=== PATIENT | female | born 1950 | race Caucasian/White ===

== ENCOUNTER → 2018-03-03 09:11 | Outpatient (CLI) | payer OTHER, SELFPAY ==
[2018-03-03 11:03] LABS: AST(SGOT) 18 U/L (15-37); Alanine Aminotransfer ALT/SGPT 32 U/L (13-56); Albumin, Serum 3.4 g/dL (3.2-5.0); Alkaline Phosphatase 71 U/L (45-117); Anion Gap 8 (5-15); BUN 16 mg/dL (7-18); BUN/Creat Ratio 18.9 RATIO (10-20); Calcium,Total 8.6 mg/dL (8.5-10.1); Chloride 110 mmol/L (98-107); Cholesterol 217 mg/dL (200); Creatinine, Serum 0.85 mg/dL (0.55-1.02); EST Glomerular Filtration Rate 71 mL/min (>60); Est Glom Filt Rate - Afr Amer 86 mL/min (>60); Globulin 3.5 g/dL (2.2-4.2); Glucose 88 mg/dL (74-106); High Density Lipoprotein 52 mg/dL; Potassium 3.9 mmol/L (3.5-5.1); Protein, Total 6.9 g/dL (6.4-8.2); Sodium Level 142 mmol/L (136-145); Triglycerides 91 mg/dL; Very Low Density Lipoprotein 18 mg/dL (5-40)
[2018-03-03 11:28] LABS: Vitamin D,25 Hydroxy 50.2 ng/mL (29.95-100.01)
== END ==
PROVIDERS: Family Provider Family Medicine; PCP Family Medicine; Visit Provider Family Medicine
DX: I10 Essential (primary) hypertension (principal); Z13.220 Encounter for screening for lipoid disorders; M81.0 Age-related osteoporosis without current pathological fracture
CPT/HCPCS: 36415; 80053; 80061; 82306

== ENCOUNTER → 2018-08-01 09:43 | Outpatient (CLI) | payer OTHER, SELFPAY ==
[2018-08-01 12:03] LABS: Absolute Lymphocyte Count 1.91 X10^3/ul (0.83-4.51); Absolute Neutrophil Count 3.9 X10^3/uL (2.0-7.7); Basophil# 0.05 X10^3/uL; Basophil% 0.7 % (0-1); Eosinophil# 0.37 X10^3/uL; Eosinophils% 5.3 % (0-5); Hematocrit 37.4 % (37-47); Hemoglobin 12.7 g/dl (12.0-15.0); Lymphocyte # 1.91 X10^3/ul (4.0); Lymphocyte % 27.3 % (19-41); Mean Corpuscular Hgb 29.9 pg (27.0-32.0); Mean Platelet Vol. 11.4 fl (6.2-12.0); Monocyte# 0.74 X10^3/uL; Monocyte% 10.6 % (0-10); Neutrophil # 3.92 X10^3/uL (2.7-7.7); Platelet Count 269 K/mm3 (150-450); RBC Distribution Width CV 12.6 % (11.6-14.6); RBC Distribution Width SD 39.8 fl (35.1-43.9); Red Blood Count 4.25 M/mm3 (4.2-5.4)
[2018-08-01 12:04] LABS: POSITIVE COUNT NO; POSITIVE DIFFERENTIAL NO; POSITIVE MORPHOLOGY NO
[2018-08-01 12:10] LABS: Anion Gap 10 (5-15); BUN 15 mg/dL (7-18); BUN/Creat Ratio 19.2 RATIO (10-20); Calcium,Total 8.9 mg/dL (8.5-10.1); Chloride 101 mmol/L (98-107); Cholesterol 270 mg/dL (200); Creatinine, Serum 0.78 mg/dL (0.55-1.02); EST Glomerular Filtration Rate 78 mL/min (>60); Est Glom Filt Rate - Afr Amer 95 mL/min (>60); Glucose 98 mg/dL (74-106); High Density Lipoprotein 51 mg/dL; Magnesium 2.4 mg/dL (1.6-2.6); Potassium 3.6 mmol/L (3.5-5.1); Sodium Level 136 mmol/L (136-145); Triglycerides 85 mg/dL; Very Low Density Lipoprotein 17 mg/dL (5-40)
[2018-08-01 12:20] LABS: Vitamin D,25 Hydroxy 60.1 ng/mL (29.95-100.01)
== END ==
PROVIDERS: Family Provider Family Medicine; PCP Family Medicine; Visit Provider Family Medicine
DX: I10 Essential (primary) hypertension (principal); M25.50 Pain in unspecified joint; Z13.21 Encounter for screening for nutritional disorder; Z13.220 Encounter for screening for lipoid disorders
CPT/HCPCS: 36415; 80048; 80061; 82306; 83735; 85025

== ENCOUNTER → 2018-12-01 09:51 | Outpatient (CLI) | payer OTHER, SELFPAY ==
[2018-12-01 12:45] LABS: ALB/GLOB Ratio 1.1 RATIO (0.9-2.4); AST(SGOT) 21 U/L (15-37); Alanine Aminotransfer ALT/SGPT 36 U/L (13-56); Albumin, Serum 3.7 g/dL (3.2-5.0); Alkaline Phosphatase 78 U/L (45-117); Anion Gap 10 (5-15); BUN 17 mg/dL (7-18); BUN/Creat Ratio 21.4 RATIO (10-20); Calcium,Total 8.5 mg/dL (8.5-10.1); Chloride 107 mmol/L (98-107); Cholesterol 262 mg/dL (200); Creatinine, Serum 0.79 mg/dL (0.55-1.02); EST Glomerular Filtration Rate 77 mL/min (>60); Est Glom Filt Rate - Afr Amer 93 mL/min (>60); Globulin 3.3 g/dL (2.2-4.2); Glucose 91 mg/dL (74-106); High Density Lipoprotein 62 mg/dL; Potassium 4.3 mmol/L (3.5-5.1); Sodium Level 139 mmol/L (136-145); Triglycerides 84 mg/dL; Very Low Density Lipoprotein 17 mg/dL (5-40)
[2018-12-01 16:14] LABS: Microalbumin,Random Urine 5.1 mg/L (NO RANGE EST.); Microalbumin:Creatinine Ratio 5.1 mg/g CRE (<30 mg/g CRE)
== END ==
PROVIDERS: Family Provider Family Medicine; PCP Family Medicine; Visit Provider Family Medicine
DX: I10 Essential (primary) hypertension (principal); E78.5 Hyperlipidemia, unspecified
CPT/HCPCS: 36415; 80053; 80061; 82043; 82570

== ENCOUNTER → 2019-01-30 | Outpatient (CLI) | payer OTHER, SELFPAY ==
[2019-01-30 12:46] LABS: Cholesterol 250 mg/dL (200); High Density Lipoprotein 52 mg/dL; Triglycerides 147 mg/dL; Very Low Density Lipoprotein 29 mg/dL (5-40)
== END | disposition home or self-care (01) ==
LOC: MFPLAB 10:04
PROVIDERS: Family Provider Family Medicine; PCP Family Medicine; Referring Provider Family Medicine; Visit Provider Family Medicine
DX: E78.5 Hyperlipidemia, unspecified (principal)
CPT/HCPCS: 36415; 80061

== ENCOUNTER 2019-05-03 11:30 | Outpatient (RCR) | payer OTHER, SELFPAY ==
--- NOTE | 2019-04-11 17:22 | HP.PTEVAL ---
Patient's Visit Information MARII GOODRICH is a 68 year old F referred to Physical Therapy by Reno Mendoza with a diagnosis of B Knee DJD. Date of Evaluation: 04/11/19 Physical Therapist: CURTIS Mares - Visit Plan Frequency: 2-3x /Week Duration: 4-6 Weeks Plan: 2-3X/ week for 4 weeks-6 weeks for gait training, knee AROM, hip and knee strength, stairs, curb steps with HEP and modalities as needed. - Subjective Findings: Pt is going to get a knee replacement at the end of August. She just got another cortizone shot in her knees and the R knee is the worst. They are both bone on bone. Dr said she could do a Bilateral but she is scared to do that. She teaches at College. Her Dr is Dr Mendoza. She lives in [address] home and she has stairs with rails to the basement. She has 2 steps into the house with a railing. When the cortizone wears off her pain is 5/10. INcrease pain with walking long distances on the R. She can not walk rereationally and she is now gaining weight. - Pain R knee pain Pain Intensity (Out of 10): 2 Pain Intensity Range: 3 Comment: going up and down steps and with cortizone L knee pain Pain Intensity (Out of 10): 1 - Objective Gait: Walks with decrease stance time on the L... slightly. Overall normal gait pattern. R knee flexion AROM: 125 degrees and 0 degrees extension. L knee flexion AROM: 116 degrees and 0 degrees extension. LE MMT: R hip abd 4-/5, hip flex 4-/5, knee ext 4/5, knee flex 4-/5. L hip abd 4/5, hip flex 4/5, knee ext 4-/5, knee flex 4/5. Pt is able to heel and toe walk without issues. Stairs: Pt is able to ascend the stairs recip with 2 hand rails and it is hard for her to push through that R leg to ascend the stairs and she hops off the R knee quickly to avoid bending it and avoid the pain. - Goals Goal 1:: I HEP Goal Time Frame: 4-6 Weeks Goal 2:: Be able to go up and down stairs with a smooth recip pattern with 1 hand rail if needed. Goal Time Frame: 4-6 Weeks Goal 3:: Increase R knee AROM -1 degrees to 125 degrees knee flexion Goal Time Frame: 4-6 Weeks Goal 4:: Walk with a normal gait pattern Goal Time Frame: 4-6 Weeks - Rehabilitation Potential Rehabilitation Potential: Good - Anticipated Interventions Patient/Client Instruction: Educate patient on: Condition, Plan of Care For the Purpose of:: To decrease pain, To decrease swelling/inflammation, To increase ROM, To improve nutrient delivery to tissue, To improve muscle performance and motor function, To improve ability to perform ADL's, To increase tolerance to activity/condition/position, To improve performance and independence with ADL's, To improve gait and locomotor functions, To improve health of tissue, To decrease soft tissue restriction, To increase flexibility/ROM Therapeutic Exercise to Include: Strength training, Flexibilty training, Gait and locomotor training, Passive ROM, Active ROM For the Purpose of:: To decrease pain, To decrease swelling/inflammation, To improve nutrient delivery to tissue, To increase oxygenation perfusion, To improve muscle performance and motor function, To improve ability to perform ADL's, To improve performance and independence with ADL's, To decrease level of supervision to perform tasks, To improve ability of physical actions for home/community/work/leisure, To improve gait and locomotor functions Functional Training to Include: Gait training For the Purpose of:: To improve gait and locomotor functions IF ES: Yes Cryotherapy (ice pack, ice massage): Yes Ultrasound (thermal/non thermal): Yes For the Purpose of:: To decrease pain, To decrease swelling/inflammation, To increase ROM, To improve nutrient delivery to tissue Thank you for the opportunity to evaluate your patient. For Medicare and Medicare HMO plans, please review the plan of care and approve it. It will need to be FAXED BACK to us at [phone] for Medicare purposes. For Medicare only, by signing this I certify the plan of care. Please let me know if there are questions or concerns regarding this plan of care. Physician Signature: Date:
--- NOTE | 2019-05-04 10:59 | HP.PTDCSUM ---
HP - PT D/C Summary It has been my pleasure to treat MARII GOODRICH under orders from Reno Mendoza, for the diagnosis of B Knee DJD for a total of 9 visit(s). Discharge Date: 05/04/19 Please see the following information for a summary of their discharge status. - Subjective Subjective: Started on indep. use of the gym machines today w/ pt being in chage of her machine set ups. Still gets flared up on bilat. knees whenever overdoing any type of activity. - Pain R knee pain Pain Intensity (Out of 10): 2 L knee pain Pain Intensity (Out of 10): 2 - Objective Objective/Function: pt did well today. This is pt last session. Still has swelling and stiffness depending on the activities she does but wants to do the workout on her own at gym. - Goals Goal 1:: I HEP Goal 2:: Be able to go up and down stairs with a smooth recip pattern with 1 hand rail if needed. Goal 3:: Increase R knee AROM -1 degrees to 125 degrees knee flexion Goal 4:: Walk with a normal gait pattern - Plan Plan: Cont w/ POC.pt wants to be d/c from PT. - D/C Information Discharge Comments: DC PT to [facility] If there are questions or concerns regarding this patient's physical therapy, please feel free to call me at [phone]. Thank you for the referral of this patient. Sincerely, Kathi Mcclendon, MPT
== END 2019-05-03 19:00 | disposition home or self-care (01) ==
LOC: PT 11:30
PROVIDERS: Family Provider Family Medicine; PCP Family Medicine; Referring Provider Orthopaedic Surgery; Visit Provider Orthopaedic Surgery
DX: M17.0 Bilateral primary osteoarthritis of knee (principal)
CPT/HCPCS: 97110; 97161

== ENCOUNTER → 2019-11-30 10:24 | Outpatient (CLI) | payer OTHER, SELFPAY ==
[2019-11-30 13:02] LABS: ALB/GLOB Ratio 0.9 RATIO (0.9-2.4); AST(SGOT) 18 U/L (15-37); Alanine Aminotransfer ALT/SGPT 37 U/L (13-56); Albumin, Serum 3.5 g/dL (3.2-5.0); Alkaline Phosphatase 74 U/L (45-117); Anion Gap 5 (5-15); BUN 17 mg/dL (7-18); BUN/Creat Ratio 20.3 RATIO (10-20); Calcium,Total 9.2 mg/dL (8.5-10.1); Chloride 107 mmol/L (98-107); Cholesterol 241 mg/dL (200); Creatinine, Serum 0.84 mg/dL (0.55-1.02); EST Glomerular Filtration Rate 72 mL/min (>60); Est Glom Filt Rate - Afr Amer 87 mL/min (>60); Globulin 3.8 g/dL (2.2-4.2); Glucose 104 mg/dL (74-106); High Density Lipoprotein 51 mg/dL; Potassium 3.9 mmol/L (3.5-5.1); Protein, Total 7.3 g/dL (6.4-8.2); Sodium Level 137 mmol/L (136-145); Triglycerides 122 mg/dL; Very Low Density Lipoprotein 24 mg/dL (5-40)
== END ==
PROVIDERS: PCP Family Medicine; Referring Provider Family Medicine; Visit Provider Family Medicine
DX: E78.00 Pure hypercholesterolemia, unspecified (principal)
CPT/HCPCS: 36415; 80053; 80061

== ENCOUNTER → 2020-05-12 08:55 | Outpatient (CLI) | payer OTHER, SELFPAY ==
[2020-05-12 08:28] VITALS: BMI 24.9
--- NOTE | 2020-05-12 08:56 | RAD_ITS ---
STUDY: X-RAY - RIGHT KNEE REASON FOR EXAM: Female, 69 years old. PAIN AND STIFFNESS WITH SWELLING BOTH KNEES FOR A LONG TIME. NO KNOWN RECENT INJURY. TECHNIQUE: 4 view(s) of the knee. COMPARISON: None. FINDINGS: Normal visualized distal femur. Normal visualized proximal tibia and fibula. Normal proximal tibiofibular articulation. There is severe degenerative arthrosis of the medial femorotibial compartment with severe joint space narrowing. There is mild degenerative arthrosis of the lateral femorotibial compartment. There is moderate degenerative arthrosis of the patellofemoral articulation. No demonstrated effusion, there are degenerative spurs. The soft tissue structures are unremarkable. RAD/Knee 4 or More Views IMPRESSION: Degenerative arthrosis. Electronically Signed: Cipriano Rosales MD at 9:27 EDT , Service support ,
--- NOTE | 2020-05-12 08:57 | RAD_ITS ---
STUDY: X-RAY - LEFT KNEE REASON FOR EXAM: Female, 69 years old. PAIN AND STIFFNESS WITH SWELLING BOTH KNEES FOR A LONG TIME. NO KNOWN RECENT INJURY. TECHNIQUE: 4 view(s) of the knee. COMPARISON: None. FINDINGS: Normal visualized distal femur. Normal visualized proximal tibia and fibula. Normal proximal tibiofibular articulation. There is severe degenerative arthrosis of the medial femorotibial compartment with severe joint space narrowing. There is mild degenerative arthrosis of the lateral femorotibial compartment. There is moderate degenerative arthrosis of the patellofemoral articulation. No demonstrated effusion there are degenerative spurs. The soft tissue structures are unremarkable. RAD/Knee 4 or More Views IMPRESSION: Tricompartmental arthrosis with degenerative spurs. Electronically Signed: Cipriano Rosales MD at 9:26 EDT , Service support ,
== END ==
LOC: HPRAD 08:56
PROVIDERS: PCP Family Medicine; Referring Provider Orthopaedic Surgery; Visit Provider Orthopaedic Surgery
DX: M25.561 Pain in right knee (principal); M25.562 Pain in left knee
CPT/HCPCS: 73564

== ENCOUNTER → 2020-06-02 08:20 | Outpatient (CLI) | payer OTHER, SELFPAY ==
[2020-05-12 08:28] VITALS: BMI 24.9
[2020-05-26 10:38] VITALS: BMI 24.9
--- NOTE | 2020-06-02 08:22 | CT_ITS ---
STUDY: CT SCAN LOWER EXTREMITY RIGHT REASON FOR EXAM: Female, 69 years old. RT KNEE EULALIA PLASTY. KNEE PAIN RADIATION DOSAGE (If Supplied By Facility): CTDIvol = ( 18.76 ) mGy, DLP = ( 1134.32 ) mGycm. Individualized dose optimization techniques were used for this CT.? TECHNIQUE: Multiple axial tomographic images of the right hip joint in the right knee joints were obtained. Sagittal and coronal reconstruction was obtained as well. COMPARISON: Comparison is made with prior radiograph of the right knee dated 05/12/2020. FINDINGS: The right hip joint is unremarkable. No significant joint space narrowing is seen. The bones have a normal appearance. There is a marked degree of joint space narrowing and degenerative spurring along the medial compartment of the knee joint. Minimal spurring is also seen along the lateral compartment of the knee joint. There is a moderate degree of joint space narrowing and osteoarthritis involving the patellofemoral joint with a prominent degenerative spur along the superior aspect of the femoral condyle. CT/Extremity Lower without Contra IMPRESSION: Moderate degree of the joint space narrowing and degeneration of the medial compartment of knee joint as well as a moderate degree of the osseous right as involving the patellofemoral joint with degenerative spurring. Electronically Signed: Bogdan Schwarz, at 9:02 EDT , Service support ,
== END ==
PROVIDERS: PCP Family Medicine; Referring Provider Orthopaedic Surgery; Visit Provider Orthopaedic Surgery
DX: M17.0 Bilateral primary osteoarthritis of knee (principal)
CPT/HCPCS: 73700

== ENCOUNTER → 2020-06-10 09:14 | Outpatient (CLI) | payer OTHER, SELFPAY ==
[2020-05-26 10:38] VITALS: BMI 24.9
[2020-06-10 10:04] LABS: Absolute Lymphocyte Count 2.34 X10^3/uL (0.83-4.51); Absolute Neutrophil Count 5.2 X10^3/uL (2.0-7.7); Basophil# 0.06 X10^3/uL; Basophil% 0.7 % (0-1); Eosinophil# 0.37 X10^3/uL; Eosinophils% 4.3 % (0-5); Hematocrit 39.4 % (37-47); Hemoglobin 12.9 g/dL (12.0-15.0); Lymphocyte # 2.34 X10^3/ul (4.0); Lymphocyte % 27.1 % (19-41); Mean Corp Hgb Conc 32.7 g/dL (32-36); Mean Corpuscular Volume 91.6 fL (81-99); Monocyte# 0.66 X10^3/uL; Monocyte% 7.6 % (0-10); NRBC Flagged by Analyzer 0 % (0-5); Neutrophil # 5.16 X10^3/uL (2.7-7.7); Neutrophil % 59.8 % (47-70); Platelet Count 288 K/mm3 (150-450); RBC Distribution Width CV 12.9 % (11.6-14.6); RBC Distribution Width SD 43.2 fl (35.1-43.9); White Blood Count 8.6 K/mm3 (4.4-11.0)
[2020-06-10 10:47] LABS: AST(SGOT) 20 U/L (15-37); Alanine Aminotransfer ALT/SGPT 34 U/L (13-56); Albumin, Serum 3.6 g/dL (3.2-5.0); Alkaline Phosphatase 71 U/L (45-117); Anion Gap 5 (5-15); BUN 16 mg/dL (7-18); BUN/Creat Ratio 19.1 RATIO (10-20); Chloride 104 mmol/L (98-107); Cholesterol 144 mg/dL (200); Creatinine, Serum 0.84 mg/dL (0.55-1.02); EST Glomerular Filtration Rate 72 mL/min (>60); Est Glom Filt Rate - Afr Amer 87 mL/min (>60); Globulin 3.6 g/dL (2.2-4.2); Glucose 103 mg/dL (74-106); High Density Lipoprotein 56 mg/dL; Potassium 4.2 mmol/L (3.5-5.1); Protein, Total 7.2 g/dL (6.4-8.2); Sodium Level 137 mmol/L (136-145); Triglycerides 82 mg/dL; Very Low Density Lipoprotein 16 mg/dL (5-40)
== END ==
PROVIDERS: PCP Family Medicine; Referring Provider Family Medicine; Visit Provider Family Medicine
DX: Z01.818 Encounter for other preprocedural examination (principal); E78.00 Pure hypercholesterolemia, unspecified
CPT/HCPCS: 36415; 80053; 80061; 85025

== ENCOUNTER 2020-07-29 06:37 | Day surgery (SDC) | payer OTHER, SELFPAY ==
[2020-05-12 08:28] VITALS: BMI 24.9
--- NOTE | 2020-06-24 09:16 | EKG12_ITS ---
Test Reason : PRE OP Blood Pressure : / mmHG Vent. Rate : 114 BPM Atrial Rate : 114 BPM P-R Int : 156 ms QRS Dur : 092 ms QT Int : 340 ms P-R-T Axes : 070 085 047 degrees QTc Int : 468 ms Sinus tachycardia Low voltage QRS (Limb Leads) Confirmed by NALLELY SAMANO, RAMONA ([id number]), manager editorial HUBERT KINGSLEY ([id number]) on 06/26/2020 11:36:10 AM Referred By: Jose E Schmidt Confirmed By:RAMONA BROWNING MD
[2020-06-24 09:39] LABS: Prothrombin Time (Protime)PT. 12.8 SECONDS (11.7-14.9)
[2020-06-24 09:40] LABS: Partial Thromboplast Time 26.5 Seconds (24.1-36.2)
[2020-06-24 10:16] LABS: Magnesium 2.1 mg/dL (1.6-2.6)
[2020-07-11 07:54] VITALS: BMI 24.9
--- NOTE | 2020-07-22 09:52 | EKG12_ITS ---
Test Reason : PRE OP Blood Pressure : / mmHG Vent. Rate : 098 BPM Atrial Rate : 098 BPM P-R Int : 172 ms QRS Dur : 086 ms QT Int : 348 ms P-R-T Axes : 071 079 059 degrees QTc Int : 444 ms Normal sinus rhythm Normal ECG Confirmed by SARAH SAMANO, NICOLE ([id number]), loan expeditor HUBERT KINGSLEY ([id number]) on 07/23/2020 8:46:48 AM Referred By: Jose E Schmidt Confirmed By:NICOLE SMITH MD
[2020-07-29] VITALS (8 sets, daily range): BP systolic 103–147; BP diastolic 62–103; PULSE 74–101; RESP 16–20; TEMP 36.2–37.2; O2SAT 97–100; BMI 27.6
[2020-07-29] MEDS: Acetaminophen 500 MG Tablet 1000 MG PO ×2 (08:39→17:06)
[2020-07-29] MEDS: Gabapentin 600 MG Tablet PO (08:39)
[2020-07-29] MEDS: Scopolamine 1mg/72hr Patch 1 PATCH TRANSDERM. (08:40)
[2020-07-29] MEDS: Lactated Ringers 1,000 ML 999 ML IV (08:41)
[2020-07-29 08:56] LABS: Bedside Glucose 147 mg/dL (70-110)
[2020-07-29] MEDS: Vancomycin IV 1,000 MG/200 ML BAG 200 MG IV (08:57)
[2020-07-29] MEDS: Lactated Ringers 1,000 ML 100 ML IV (09:44)
--- NOTE | 2020-07-29 10:38 | PCM.HP.BLA ---
History and Physical Date of Admission: 07/29/20 Intake Intake Visit Reasons: right knee Chief Complaint: right knee Accompanied by: self Is patient in pain?: Yes Allergies povidone-iodine [From Betadine] Allergy (Severe, Verified 06/20/20 14:41) rash soap [From Betadine] Allergy (Severe, Verified 06/20/20 14:41) rash atropine Allergy (Verified 06/16/20 13:03) PT UNSURE OF REACTION cephalexin monohydrate [From Keflex] Allergy (Verified 06/16/20 13:03) Rash latex Allergy (Verified 06/16/20 13:03) Rash Penicillins Allergy (Verified 06/16/20 13:03) Swelling Sulfa (Sulfonamide Antibiotics) Allergy (Verified 06/16/20 13:03) Swelling nitrofurantoin macrocrystalline [From Macrodantin] Adverse Reaction (Verified 06/16/20 13:03) Unknown Medications Calcium Carbonate/Vitamin D3 [Calcium 600-Vit D3 400 Caplet] 1 ea PO BID 12/17/15 [History Confirmed 07/11/20] Cholecalciferol (VIT D3) [Vitamin D3] 1,000 unit PO BID 12/17/15 [History Confirmed 07/11/20] Famotidine [Pepcid] 10 mg PO DAILY 12/17/15 [History Confirmed 07/11/20] Lisinopril [Zestril] 10 mg PO DAILY 12/17/15 [History Confirmed 07/11/20] Multivitamin [Daily Multiple Vitamin] 1 ea PO DAILY 12/17/15 [History Confirmed 07/11/20] Propranolol HCl [Inderal (Beta David)] 10 mg PO BID 12/17/15 [History Confirmed 07/11/20] Ubidecarenone/Vitamin E [Co Q-10 50 mg Softgel] 1 ea PO DAILY 02/06/16 [History Confirmed 07/11/20] estradiol 1 g VAGINAL 2XW 05/12/20 [History Confirmed 07/11/20] rosuvastatin 5 mg tablet 5 mg PO DAILY 05/12/20 [History Confirmed 07/11/20] Lutein Extract/Zeaxanthin Ext [Lutein 15 mg Softgel] 1 ea PO DAILY 06/16/20 [History Confirmed 07/11/20] Meloxicam [Mobic] 7.5 mg PO PRN PRN 06/16/20 [History Confirmed 07/11/20] Sertraline HCl [Zoloft] 25 mg PO DAILY 06/16/20 [History Confirmed 07/11/20] PFSH Social History (Updated 07/11/20 @ 11:[address] Jose E Schmidt, ) Smoking Status: Never smoker HPI right knee: Details: Parts of this documentation were recorded by a scribe, this documentation accurately reflects the service provided and the decisions made by me, Dr. Jose E Schmidt DO 07/11/20 [id number]. MARII GOODRICH is a 70 year old F here today for right knee. PAtient is here today to sign surgery consent for right TKA CT guided. Patient states that she is ready to proceed with sugrery at this time. States that she is not has axious about the proceed at this time after doing additional research. Denies numbness, tingling or other associated symptoms. ROS Musc Reports joint pain, Reports joint swelling, Denies numbness, Reports stiffness, Denies tingling Skin/Breast Reports system reviewed and no additional complaints, except as docu Neuro No numbness, No tingling Ortho Exam Right Knee Skin/Wound: No erythema, No ecchymosis, No swelling Homans Sign: No Knee ROM: Yes ROM-Extension -20 to 0, No ROM-Flexion 0-140 Examination: Yes Med jt line tenderness Stability: NML: Anterior Drawer, NML: Posterior Drawer Supplemental Info 05/12/2020 x-ray right knee: [id number] medial compartment arthrosis,Moderate arthrosis throughout the remainder of the knee 05/12/2020 x-ray Left knee: [id number] medial compartment arthrosis,Moderate arthrosis throughout the remainder of the knee Assessment & Plan Problems 1. Primary osteoarthritis of right knee M17.11 Plan Patient is aware of the right TKA with the makoplasty. Risks, benefits and alternatives of surgery reviewed including but not limited to bleeding, infection, nerve, artery and/or tissue damage, fracture, VTE, mechanical feel of the knee, continued pain, stiffness and expected post-operative course. Patient educated that she can not have the IOVERA tx agian and it may still be effective for the surgery. DOS set for 07/29/2020. Follow up 2 weeks post op or sooner if pain, swelling, numbness or associated symptoms, or concerns develop. All questions answered. Patient in agreement of plan. Coding Level of Care Code Off vis,est,level 2 Diagnoses Primary osteoarthritis of right knee M17.11 I have re-examined the patient. There are no clinical changes since date of exam
[2020-07-29] MEDS: Lactated Ringers 1,000 ML 125 ML IV (11:30)
[2020-07-29] MEDS: Epinephrine (1 mg/ml) 1 MG/ML VIAL (11:55)
[2020-07-29] MEDS: Bupivacaine Mpf 0.5% 30 ML VIAL (11:55)
[2020-07-29] MEDS: Betamethasone/Betamethasone 30 MG/5 ML Vial (11:55)
--- NOTE | 2020-07-29 12:36 | DCINST_ITS ---
Discharge Diet: No Restrictions Weight Bearing Status: Weight bearing as tolerated Call your doctor if you observe: Shortness of breath, Chest pain Additional Instructions: Ice and elevate one week while not ambulating. Ambulation is encouraged. Weightbearing as tolerated. Use assistive devise for stability. Encourage FULL knee extension and flexion 1 time EVERY time you get up and down and MULTIPLE times per day. No showering 72 hours after surgery. Begin showering postop day #3. Remove the dressing prior to shower and gently wash with warm water and antibacterial soap then pat dry and place abdominal pad (or plain gauze) and ANÍBAL hose over top. This is to be done daily. Do not submerge for 3 weeks. If not showering daily after the initial 72 hours then you must clean incision and change dressing daily. Do not allow animals near the incision area. Keep clean. Follow anticoagulation recommendations as prescribed. Do not take any NSAIDs while on blood thinner. Do not take any additional narcotic pain medication other than what was prescribed on you surgery day without discussing with physician. Start physical therapy. If you are not currently scheduled for physical therapy or you are unsure of appointment time please call office [facility] to arrange. Call Dr. Schmidt with any concerns. Allergies/Adverse Reactions: Allergies povidone-iodine [From Betadine] Allergy (Severe, Verified 06/20/20 14:41) rash topical rash soap [From Betadine] Allergy (Severe, Verified 06/20/20 14:41) rash topical rash atropine Allergy (Verified 06/16/20 13:03) PT UNSURE OF REACTION cephalexin monohydrate [From Keflex] Allergy (Verified 06/16/20 13:03) Rash latex Allergy (Verified 06/16/20 13:03) Rash Penicillins Allergy (Verified 06/16/20 13:03) Swelling Sulfa (Sulfonamide Antibiotics) Allergy (Verified 06/16/20 13:03) Swelling nitrofurantoin macrocrystalline [From Macrodantin] Adverse Reaction (Verified 06/16/20 13:03) Unknown Medications to take at Discharge Calcium Carbonate/Vitamin D3 [Calcium 600-Vit D3 400 Caplet] 1 ea PO BID 12/17/15 Cholecalciferol (VIT D3) [Vitamin D3] 1,000 unit PO BID 12/17/15 Famotidine [Pepcid] 10 mg PO DAILY 12/17/15 Lisinopril [Zestril] 10 mg PO DAILY 12/17/15 Multivitamin [Daily Multiple Vitamin] 1 ea PO DAILY 12/17/15 Propranolol HCl [Inderal (Beta David)] 10 mg PO BID 12/17/15 Ubidecarenone/Vitamin E [Co Q-10 50 mg Softgel] 1 ea PO DAILY 02/06/16 estradiol 1 g VAGINAL 2XW 05/12/20 rosuvastatin 5 mg tablet 5 mg PO DAILY 05/12/20 Lutein Extract/Zeaxanthin Ext [Lutein 15 mg Softgel] 1 ea PO DAILY 06/16/20 Sertraline HCl [Zoloft] 25 mg PO DAILY 06/16/20 Acetaminophen [Tylenol Extra Strength] 1,000 mg PO Q6H PRN #100 tab 07/29/20 Apixaban [Eliquis] 2.5 mg PO BID #30 tab 07/29/20 Clindamycin HCl 300 mg PO Q8 #2 cap 07/29/20 Loratadine [Claritin] 10 mg PO DAILY PRN PRN 07/29/20 Ondansetron HCl [Zofran] 4 mg PO Q6H PRN PRN 5 Days #20 tab 07/29/20 Oxycodone [Oxyir] 5 mg PO Q4H PRN PRN #60 tab 07/29/20 Spironolactone 25 mg PO DAILY PRN PRN 07/29/20 The following prescriptions were given: Clindamycin HCl 300 mg PO Q8 #2 cap Transmission Status: Sent to [facility]/pharmacy #[id number] Apixaban [Eliquis] 2.5 mg PO BID #30 tab Transmission Status: Received by [facility] Oxycodone [Oxyir] 5 mg PO Q4H PRN PRN #60 tab PRN Reason: Pain Score 6-10/10 Transmission Status: Received by [facility] Acetaminophen [Tylenol Extra Strength] 1,000 mg PO Q6H PRN #100 tab Transmission Status: Received by [facility] Ondansetron HCl [Zofran] 4 mg PO Q6H PRN PRN 5 Days #20 tab PRN Reason: Nausea Transmission Status: Received by [facility] Orders to be completed after discharge: Type & Screen - PAT ONLY Facility: [facility], Location: [facility] Primary Care Physician: Darryl Ríos MD [Primary Care Provider] - Test Results: Test results from this visit will be discussed in further detail at your follow- up appointment, if applicable. Please Follow Up With: Jose E Schmidt DO - 2 weeks
--- NOTE | 2020-07-29 12:38 | OP.PCM_ITS ---
Report of Operation Date of Procedure: 07/29/20 Description of Surgical Findings:: Preoperative diagnosis: Right knee DJD Postoperative diagnosis: Same Procedure: Right total knee arthroplasty CT guided Robotic Assisted Implant: Randi triathlon press fit femoral component size2, press-fit tibial baseplate size 3, press fit asymmetric patella size 32, polyethylene X3 size 9 CS Anesthesia: Spinal with adductor canal block Tourniquet time: 12 minutes at 300 mmHg Complications: None Condition: Stable to PACU Estimated blood loss: 125 cc Indication for procedure: This is a 70-year-old female with long standing degenerative joint disease of the knee who has failed conservative treatment and wished to proceed with elective total knee arthroplasty. Risk benefits and alternatives were reviewed including; risk of bleeding, infection, nerve artery and tissue damage, continued pain, postoperative stiffness, venous thromboembolism, need for postoperative rehabilitation, mechanical feel to the knee, and expected postoperative course. The operative CT and templating was performed with component sizing Procedure: The patient was met in the preoperative holding area. The operative extremity was identified by both patient and physician and was marked. Patient was met by anesthesia. An adductor canal block was placed by anesthesia postoperatively the patient was brought back to the operating room on a wheeled cart and transferred to the operating table in the supine position. Anesthesia was started. A well-padded tourniquet was placed on the operative extremity. The patient was prepped and draped in the usual sterile fashion. A timeout was called to ensure the proper patient procedure and extremity were being contemplated. An Esmarch was used to exsanguinate the extremity. The tourniquet was inflated. A 10 blade scalpel was used to make a midline incision down through the skin and subcutaneous tissue. Skin retractors placed. Bovie was used to perform meticulous hemostasis. full-thickness flaps were elevated medial and lateral along the joint capsule. A deep blade scalpel was used to perform a medial parapatellar arthrotomy. The knee was brought to full extension. A Bovie was used to release the soft tissues off the most proximal aspect of the medial tibial plateau a three-quarter inch curved osteotome was also used for this process. The infrapatellar fat pad was excised. The fat pad was excised partially anterior lateral portion the anterior medial was elevated from the femur. At this point our intra-articular femoral array was placed of a 45 degree angle proximal and posterior to the medial epicondyle. Our tibial array was placed greater than 1 hands breath below the incision at a 20 degree angle stab incisions were used for this case were attached and checked with the robotic software. Tourniquet was let down. At this point registration ayon were taken throughout the knee as well as checkpoints placed in the femur and tibia once the knee was registered then tensioned the medial and lateral ligaments in extension and 90 degrees of flexion. We then used these numbers to adjust our components within parameters to balance the knee in both flexion and extension once this was done on our monitor we then proceeded with using the robotic arm to make our tibial plateau cut and anterior posterior and chamfer cuts on the femur we then trialed and achieved the desired plan with a well- balanced knee. Lug holes were drilled in the femur the tibia preparation was completed with a fin punch and the patella was prepared by first using a caliper to ensure sufficient bone stock and a patellar reamer to remove the desired amount of bone locals were drilled for an asymmetric poly-. We then brought the knee through range of motion with excellent patellar tracking. We thoroughly irrigated the knee with a trial components were removed a posterior capsular injection with her standard cocktail was performed the aqua Mantis was also used to aid in hemostasis. Betadine rinse was allowed to sit and washed out components were press-fit into place. Aricept rinse was then used followed by several more rate liters of irrigation after it was allowed to sit. Joint capsule was closed with #1 Ethibond [id number] followed by Vicryl in the subcutaneous tissues staple in the skin arrays and checkpoints were removed prior to closure all counts were correct stab incisions were closed with a stable standard dressing in the form of Mepilex for the main incision Xeroform 4 x 4 and Tegaderm over pin site holes. Thigh-high ANÍBAL hose applied over top of dressing. Patient tolerated the procedure well and was directed to PACU in stable condition no intraoperative complications
--- NOTE | 2020-07-29 13:12 | RAD_ITS ---
STUDY: X-RAY - RIGHT KNEE REASON FOR EXAM: Female, 70 years old. POST OP PORTABLE RIGHT KNEE. TECHNIQUE: 2 view(s) of the knee. COMPARISON: 05/12/2020 FINDINGS: Normal visualized distal femur. Normal visualized proximal tibia and fibula. Normal proximal tibiofibular articulation. Interval recent total knee arthroplasty with skin tony and subcutaneous emphysema.. The soft tissue structures are unremarkable. RAD/Knee 1 or 2 Views IMPRESSION: Interval recent total knee arthroplasty. Electronically Signed: Sloan Ross MD at 15:55 EDT Tel , Service support ,
[2020-07-29 13:30] LABS: Bedside Glucose 120 mg/dL (70-110)
== END 2020-07-29 17:27 | disposition home or self-care (01) ==
LOC: SDC 06:38 → AC 06:38
PROVIDERS: Anesthesiology; PCP Family Medicine; Referring Provider Orthopaedic Surgery; Visit Provider Orthopaedic Surgery
PROC: 0SRC0JZ Replacement of Right Knee Joint with Synthetic Substitute, Open Approach (ICD-10-PCS; CPT 27447; principal; 2020-07-29 09:30)
DX: M17.11 Unilateral primary osteoarthritis, right knee (principal); Z11.59 Encounter for screening for other viral diseases; I10 Essential (primary) hypertension; K21.9 Gastro-esophageal reflux disease without esophagitis; E78.00 Pure hypercholesterolemia, unspecified; F32.9 Major depressive disorder, single episode, unspecified; G25.81 Restless legs syndrome; Z78.0 Asymptomatic menopausal state; Z85.3 Personal history of malignant neoplasm of breast; Z85.828 Personal history of other malignant neoplasm of skin; Z79.01 Long term (current) use of anticoagulants; Z79.899 Other long term (current) drug therapy
CPT/HCPCS: 01402; 27447; S2900; 73560; 82962; 83735; 85610; 85730; 86850; 86900; 86901; 87081; 87635; 93005; 97162; 97166; C1776; C9803; J7120; J0702; J2405; U0003

== ENCOUNTER → 2022-02-17 | Outpatient (CLI) | payer MEDICARE, OTHER, SELFPAY ==
[2022-02-17 10:32] LABS: Microalbumin,Random Urine 5.1 mg/L (NO RANGE EST.); Microalbumin:Creatinine Ratio 6.2 mg/g CRE (<30 mg/g CRE)
[2022-02-17 10:36] LABS: Vitamin D,25 Hydroxy 110.3 ng/mL
[2022-02-17 10:39] LABS: Cholesterol 150 mg/dL (200); High Density Lipoprotein 51 mg/dL; Thyroid Stim Hormone (TSH) 0.99 uIU/mL (0.358-3.74); Triglycerides 85 mg/dL; Very Low Density Lipoprotein 17 mg/dL (5-40)
== END | disposition home or self-care (01) ==
LOC: MFPLAB 08:47
PROVIDERS: PCP Family Medicine; Referring Provider Family Medicine; Visit Provider Family Medicine
DX: M85.80 Other specified disorders of bone density and structure, unspecified site (principal); I10 Essential (primary) hypertension; F41.1 Generalized anxiety disorder
CPT/HCPCS: 36415; 80061; 82043; 82306; 82570; 84443

== ENCOUNTER → 2022-02-22 | Outpatient (CLI) | payer MEDICARE, OTHER, SELFPAY ==
[2022-02-22 16:19] LABS: AST(SGOT) 27 U/L (15-37); Alanine Aminotransfer ALT/SGPT 40 U/L (13-56); Albumin, Serum 3.8 g/dL (3.2-5.0); Alkaline Phosphatase 78 U/L (45-117); Anion Gap 4 (5-15); BUN 18 mg/dL (7-18); Calcium,Total 9.3 mg/dL (8.5-10.1); Chloride 104 mmol/L (98-107); Creatinine, Serum 0.95 mg/dL (0.55-1.02); EST Glomerular Filtration Rate 62 mL/min (>60); Est Glom Filt Rate - Afr Amer 75 mL/min (>60); Globulin 3.7 g/dL (2.2-4.2); Glucose 111 mg/dL (74-106); Potassium 4.6 mmol/L (3.5-5.1); Protein, Total 7.5 g/dL (6.4-8.2); Sodium Level 135 mmol/L (136-145)
== END | disposition home or self-care (01) ==
LOC: MFPLAB 12:14
PROVIDERS: PCP Family Medicine; Visit Provider Family Medicine
DX: I10 Essential (primary) hypertension (principal); T45.2X1A Poisoning by vitamins, accidental (unintentional), initial encounter
CPT/HCPCS: 36415; 80053

== ENCOUNTER → 2022-04-28 | Outpatient (CLI) | payer MEDICARE, OTHER, SELFPAY ==
--- NOTE | 2022-04-28 09:47 | BD_ITS ---
STUDY: DUAL ENERGY X-RAY ABSORPTIOMETRY / DXA REASON FOR EXAM: Female, 71 years old. 733.90OsteopeniaBONE DENSITY REASON FOR EXAM TECHNIQUE: Bone Mineral Density (BMD) measurements of lumbar spine and bilateral hips were obtained. COMPARISON: None. FINDINGS: Lumbar Spine (L1-L4): g/cm2 (0.679) / T-score (-3.3) / Z-score (-1.2) Findings are suggestive of osteoporosis with a high fracture risk. Left Femur Total: g/cm2 (0.631) / T-score (-2.5) / Z-score (-1.1) Left Femoral Neck: g/cm2 (0.546) / T-score (-2.7) / Z-score (-0.9) Right Femur Total: g/cm2 (0.618) / T-score (-2.7) / Z-score (-1.2) Right Femoral Neck: g/cm2 (0.503) / T-score (-3.1) / Z-score (-1.3) BD/Dexa Bone Density Study IMPRESSION: The patient is considered osteoporotic as outlined below according to World [employer] Organization (WHO) criteria with a high fracture risk. Reference Information: The T-score is the number of standard deviations above or below the standard which is normal for young adults at their peak bone mineral density. The World Health Organization (WHO) interprets the T-scores as follows: Above -1 Normal bone density Between -1 and -2.5 Osteopenia Equal to / or below -2.5 Osteoporosis As a practical clinical guideline, osteopenia may be graded as follows: Mild -1 through -1.5 Moderate -1.6 through -2.0 Severe -2.1 through -2.4 The Z-score is the number of standard deviations above or below age-matched controls. A Z-score of less than -1.5 would be considered abnormal. References: 1. NIH Osteoporosis and Related Bone Diseases www osteo.org 2. International Society for Clinical Densitometry www iscd.org 3. National Osteoporosis Foundation www nof.org Electronically Signed: Bogdan Schwarz MD at 11:08 EDT ,
== END | disposition home or self-care (01) ==
LOC: OPBD 09:42
PROVIDERS: PCP Family Medicine; Referring Provider Family Medicine; Visit Provider Family Medicine
DX: M81.0 Age-related osteoporosis without current pathological fracture (principal); M85.80 Other specified disorders of bone density and structure, unspecified site
CPT/HCPCS: 77080